=== PATIENT | female | born 1945 | race Caucasian/White ===

== ENCOUNTER 2017-01-29 12:59 | Day surgery (SDC) | payer MEDICARE, BC ==
[2017-01-19 14:58] LABS: BASOPHILS 0.5 %; BASOPHILS ABSOLUTE 0.03 10/3/uL (0.0-0.16); EOSINOPHILS 1.1 %; EOSINOPHILS ABSOLUTE 0.07 10/3/uL (0.0-0.53); HEMATOCRIT 42.7 % (36.0-48.0); HEMOGLOBIN 14.5 g/dL (12.0-16.0); IMMATURE GRANULOCYTES 0.2 %; IMMATURE GRANULOCYTES ABSOLUTE 0.01 10/3/uL (0.0-0.11); LYMPHOCYTES 28.6 %; LYMPHOCYTES ABSOLUTE 1.77 10/3/uL (0.67-4.30); MEAN CORPUSCULAR HEMOGLOB 30.8 pg (26.0-34.0); MEAN PLATELET VOLUME 10.4 fL (9.2-13.0); MONOCYTES 6.3 %; MONOCYTES ABSOLUTE 0.39 10/3/uL (0.21-1.20); NEUTROPHILS 63.3 %; NEUTROPHILS ABSOLUTE 3.92 10/3/uL (2.02-8.40); PLATELET COUNT 246 10/3/uL (150-400); RBC DISTRIBUTION WIDTH 13.2 % (12.0-16.0); RED CELL COUNT 4.71 10/6/uL (4.0-5.6); WHITE BLOOD CELLS 6.2 10/3/uL (4.5-10.5)
[2017-01-19 14:59] LABS: MANUAL DIFF NO %; MEAN CORPUSCULAR VOLUME 90.7 fL (80-100)
[2017-01-19 15:11] LABS: BUN (BLOOD UREA NITROGEN) 18 MG/DL (6-23); CALCIUM, SERUM 9.5 MG/DL (8.5-10.4); CHLORIDE, SERUM 104 MMOL/L (96-112); CO2 (CARBON DIOXIDE) 29 MMOL/L (24-34); CREATININE 0.85 MG/DL (0.55-1.02); GFR AFRICAN AMERICAN 80 ML/MIN (>=60); GFR NON AFRICAN AMERICAN 69 ML/MIN (>=60); GLUCOSE, SERUM 87 MG/DL (60-99); POTASSIUM, SERUM 4.3 MMOL/L (3.5-5.3)
[2017-01-19 15:12] LABS: SODIUM, SERUM 134 MMOL/L (135-148)
--- NOTE | ~2017-01-29 | OP ---
Record Of Operation [facility] [address] [place]. [address] NAME: ORIANA VALLADARES : 45 STATUS : [facility]#: [id number] AGE: 71 ADM/REG DATE : 01/29/17 MR#: [id number] REPORT SERV DATE: 01/29/17 DICTATED BY: VENTURA CHAN III DATE: 01/29/17 REPORT STATUS : Draft TRANSCRIBED BY: MODL DATE: 01/29/17 DATE OF PROCEDURE: 01/29/2017 PROCEDURE: Cystoscopy, bilateral retrogrades, fulguration of multiple bladder tumors. PREOPERATIVE DIAGNOSIS: Recurrent transitional cell carcinoma of the bladder. POSTOPERATIVE DIAGNOSIS: Recurrent transitional cell carcinoma of the bladder. ANESTHESIA: General. DESCRIPTION OF PROCEDURE: Following induction of adequate general anesthesia, the patient was placed in dorsal lithotomy position, prepped and draped in a sterile fashion. Urethra was examined and noted to be normal. She does have a significant cystocele. Bilateral retrogrades were done and there were no filling defects or obstruction. This 30- and 70- degree lenses were used to examine the bladder. On the upper part of the anterior wall and to some degree, the very distal right lateral wall was a portion of urothelium with multiple small bladder tumors in the 1 mm range. There were actually no large papillary tumors. Her bladder was quite thin and I felt that a resectoscope would almost certainly perforate the bladder. Cold cups were attempted, but I could not get good visibility on the majority of these tumors and this also looked as though it might cause more bladder wall damage. I used a small Bugbee and essentially fulgurated all the abnormal urothelium. We will do mitomycin C installation in PACU and the catheter will be removed. She tolerated the procedure well. OB/MODL Ventura Chan III, M.D. / [id number] CC: Chyna Chery III, M.D.
[~2017-01-29 12:59] MED LIST: ARMOUR THYRO60 MG PO; CALTRA600D PO; CELEXA20 PO; ENDOCET1 TAB PO; KLONO5 PO; LEVOXYL50 MCG PO; LISINOPRIL40 MG PO; NORCO1 TA1 PO; NORV5 PO; PRIN10 PO; PRIN20 PO; PROBIOTIC; PROTONIX PO; SYN.05 PO; T PO; VESICARE10 MG PO; VITAMIN D31000 UNIT PO; VITC500 PO; WELLXL150 PO; WELLXL300 PO; [UNRECOGNIZED DRUG - CODE]; [UNRECOGNIZED DRUG - MIXTURE] SL
== END 2017-01-29 21:04 | disposition home or self-care (01) ==
LOC: SDC 12:59
PROVIDERS: Urology
PROC: 0T5B8ZZ Destruction of Bladder, Via Natural or Artificial Opening Endoscopic (ICD-10-PCS; principal; 2017-01-29 15:00)
DX: C67.2 Malignant neoplasm of lateral wall of bladder (principal); I10 Essential (primary) hypertension; G47.33 Obstructive sleep apnea (adult) (pediatric); K21.9 Gastro-esophageal reflux disease without esophagitis; K58.9 Irritable bowel syndrome, unspecified; K22.2 Esophageal obstruction; E03.9 Hypothyroidism, unspecified; Z88.1 Allergy status to other antibiotic agents; Z88.8 Allergy status to other drugs, medicaments and biological substances; Z79.899 Other long term (current) drug therapy; Z98.1 Arthrodesis status; Z90.89 Acquired absence of other organs; Z90.49 Acquired absence of other specified parts of digestive tract; Z98.890 Other specified postprocedural states
CPT/HCPCS: 74420; 80048; 85025; 93005; A9270-GY; C1758; J0690; J2250; J2405; J2710; J3010; J9280; Q9967